=== PATIENT | male | born 1990 | race American Indian/Alaskan Native ===

== ENCOUNTER 2017-03-03 04:08 | Emergency (ER) | payer SELFPAY ==
[2017-03-03 04:21] VITALS: O2SAT 100
--- NOTE | 2017-03-03 04:36 | ED PDOC ---
HPI: Psych/Substance Abuse Time Seen by Provider: 03/03/17 04:10 Chief Complaint (Nursing): Psychiatric Evaluation Chief Complaint (Provider): Crisis evaluation History Per: Patient History/Exam Limitations: no limitations Onset/Duration Of Symptoms: Hrs (2) Current Symptoms Are (Timing): Still Present Suicide/Self Injury Attempted (Context): None Additional Complaint(s): The patient is a 26yo male, past medical history of depression , not on a treatment plan for depression, self-presents to the ED with EMS for evaluation of suicidal ideation for the past 2 hours. Patient states in the past he has cut his wrists but currently does not have a plan. He reports he is homeless. Patient offers no additional medical complaints. Past Medical History Reviewed: Historical Data, Nursing Documentation, Vital Signs Vital Signs: Last Vital Signs Temp 98.5 F 03/03/17 04:18 Pulse 92 H 03/03/17 04:18 Resp 16 03/03/17 04:18 BP 149/89 03/03/17 04:18 Pulse Ox 100 03/03/17 04:18 - Medical History PMH: Depression - Surgical History Surgical History: No Surg Hx - Family History Family History: States: No Known Family Hx - Social History Current smoker - smoking cessation education provided: No Ex-Smoker (has not smoked in the last 12 months): No Alcohol: None Drugs: Denies - Home Medications Home Medications: Ambulatory Orders Medication Instructions Recorded No Known Home Med 03/03/17 - Allergies Allergies/Adverse Reactions: Allergies Allergy/AdvReac Type Severity Reaction Status Date / Time No Known Allergies Allergy Verified 03/03/17 04:18 Review of Systems ROS Statement: Except As Marked, All Systems Reviewed And Found Negative Psych: Positive for: Suicidal ideation Physical Exam - Reviewed Nursing Documentation Reviewed: Yes Vital Signs Reviewed: Yes - Physical Exam Appears: Negative for: Well (disheveled and poor state of hygeine) Head Exam: Positive for: ATRAUMATIC, NORMAL INSPECTION, NORMOCEPHALIC Skin: Positive for: Warm Eye Exam: Positive for: Normal appearance Neck: Positive for: Supple Cardiovascular/Chest: Positive for: Regular Rate, Rhythm Respiratory: Positive for: Normal Breath Sounds. Negative for: Respiratory Distress Gastrointestinal/Abdominal: Positive for: Soft. Negative for: Tenderness Extremity: Positive for: Normal ROM. Negative for: Deformity, Swelling Neurologic/Psych: Positive for: Alert, Oriented. Negative for: Motor/Sensory Deficits - ECG O2 Sat by Pulse Oximetry: 100 (RA) Pulse Ox Interpretation: Normal Medical Decision Making Medical Decision Making: Time: 430 Impression: 26y/o male with suicidal ideation Plan: -- Crisis evaluation Reassess Time: 607 Patient seen and evaluated by crisis team; patient does not meet criteria for admission, is stable for discharge home. Scribe Attestation: Documented by Jacqueline Kebede acting as a scribe for Kulwinder Cadena MD. Provider Attestation: All medical record entries made by the Scribe were at my direction and personally dictated by me. I have reviewed the chart and agree that the record accurately reflects my personal performance of the history, physical exam, medical decision making, and the department course for this patient. I have also personally directed, reviewed, and agree with the discharge instructions and disposition. Disposition - Clinical Impression Clinical Impression: Depression - Disposition Disposition: Routine/Home Disposition Time: 06:08 Condition: STABLE Instructions: Depression (ED) Forms: [employer] ([employer])
[2017-03-03 05:09] LABS: RBC URINE 1 /hpf (0-3); URINE BACTERIA RARE (<OCC); URINE BILIRUBIN NEGATIVE (NEGATIVE); URINE BLOOD NEGATIVE (NEGATIVE); URINE COLOR YELLOW (YELLOW); URINE GLUCOSE (UA) NEG (Normal); URINE KETONE 80 mg/dL (NEGATIVE); URINE LEUKOCYTE ESTERASE NEG Leu/uL (Negative); URINE PROTEIN 30 mg/dL (NEGATIVE); WBC URINE 2 /hpf (0-5)
[2017-03-03 06:45] VITALS: BP 145/81; PULSE 86; RESP 15; TEMP 98.6
== END 2017-03-03 07:03 | disposition home or self-care (01) ==
LOC: H.ER 04:08
DX: F32.9 Major depressive disorder, single episode, unspecified (principal)
CPT/HCPCS: 81003; 99283; G0480